=== PATIENT | male | born 1990 | race Caucasian/White ===

== ENCOUNTER 2016-06-12 00:33 | Emergency (ER) | payer MEDICAID ==
[~2016-06-12] VITALS: Ht 170.2 cm; Wt 61.2 kg
[2016-06-12] MEDS ORDERED: CEPHALEXIN MONOHYDRATE 500 MG CAPSULE PO ONE (01:15)
[2016-06-12] MEDS ORDERED: CEFAZOLIN 1 G VIAL IM ONE (01:15)
--- NOTE | 2016-06-12 01:15 | NUR ---
pt refused the ancef im injection, spoke with pt, keflex then admin. pt then d/c'd home, aci and rx x 1 given. pt ambulated w/o diff/took all belongings.
[2016-06-12 01:17] VITALS: BP 110/72
[2016-06-12] MEDS ORDERED: CEFAZOLIN 1 G VIAL ONE (01:17)
[2016-06-12] MEDS ORDERED: CEPHALEXIN MONOHYDRATE 500 MG CAPSULE ONE (01:22)
== END 2016-06-12 01:18 | disposition home or self-care (01) ==
LOC: ER 00:35
DX: L01.00 Impetigo, unspecified (principal)
CPT/HCPCS: A4663; J0690